=== PATIENT | female | born 1980 | race Caucasian/White ===

== ENCOUNTER 2021-10-28 09:15 | Outpatient (CLI) | payer BC, MEDICAID, SELFPAY ==
[2021-10-28 19:07] LABS: Basophils Percent Auto 0.5 % (0.2-1.2); Eosinophils Absolute Auto 0.3 K/mm3 (0-0.3); Eosinophils Percent Auto 3.2 % (0-4.4); Hematocrit 38.3 % (37.0-47.0); Hemoglobin 12.5 g/dL (12.0-15.0); Immature Granulocyte Absolute 0.02 K/mm3 (0.00-0.031); Immature Granulocyte Percent A 0.3 % (0-0.5); Lymphocytes Absolute Auto 2.09 K/mm3 (0.9-3.2); Lymphocytes Percent Auto 27.1 % (18.3-44.2); Mean Corpuscular HGB Conc 32.6 g/dl (32-36); Mean Corpuscular Hemoglobin 29.6 pg (26-34); Mean Corpuscular Volume 90.5 fl (80-100); Mean Platelet Volume 9.8 fl (7.4-10.4); Monocytes Absolute Auto 0.6 K/mm3 (0.1-0.6); Monocytes Percent Auto 7.6 % (2.6-8.5); Neutrophils Absolute Auto 4.7 K/mm3 (1.3-6.7); Neutrophils Percent Auto 61.3 % (45.5-73.1); Platelet Count Result 281 k/mm3 (150-375); Red Blood Count 4.23 M/mm3 (4.2-5.4); Red Cell Distribution Width 13.2 % (11.5-14.5); White Blood Count 7.7 K/mm3 (4.5-10.0)
[2021-10-28 20:42] LABS: Alanine Aminotransferase 16 U/L (6-35); Alkaline Phosphatase 59 U/L (38-126); Anion Gap 3 mmol/L (8-16); Aspartate Amino Transferase 29 U/L (14-36); Bilirubin,Total 0.4 mg/dL (0.2-1.3); Blood Urea Nitrogen 11 mg/dL (7-17); Calcium 9.5 mg/dL (8.4-10.2); Carbon Dioxide 30 mmol/L (22-30); Chloride 104 mmol/L (98-107); Cholesterol 244 mg/dL (0-200); Estimated Glomerular Filt Rate > 60; Glucose 96 mg/dL (65-110); HDL Direct 42 mg/dL; Potassium 4.2 mmol/L (3.4-5.0); Sodium 137 mmol/L (137-145); Triglycerides 82 mg/dL (<150)
[2021-10-28 20:53] LABS: LDL Cholesterol Direct 157 mg/dL
== END 2021-10-28 09:16 | disposition home or self-care (01) ==
LOC: ANHGOSHLAB 09:17
PROVIDERS: PCP Internal Medicine; Visit Provider Nurse Practitioner
DX: E03.9 Hypothyroidism, unspecified (principal); Z13.29 Encounter for screening for other suspected endocrine disorder; Z13.220 Encounter for screening for lipoid disorders
CPT/HCPCS: 36415; 80053; 80061; 84443; 85025

== ENCOUNTER 2021-11-13 16:08 | Emergency (ER) | payer BC, MEDICAID, SELFPAY ==
[2021-11-13 16:16] VITALS: BP 121/87; PULSE 80; RESP 20; TEMP 36.3; O2SAT 100
--- NOTE | 2021-11-13 16:25 | ED.DENTAL ---
HPI - Dental/Oral General Chief complaint: Dental/Oral Stated complaint: toothache Time Seen by Provider: 11/13/21 16:19 Source: patient Mode of arrival: ambulatory Limitations: no limitations History of Present Illness HPI Narrative: Patient presents today complaining of left upper dental pain x5 to 7 days. Reports that 2 weeks ago a piece broke off of one of her teeth. She currently rates her pain 8/10 and has been taking ibuprofen with some mild relief. She has not yet called her dentist, but states she will tomorrow. Denies shortness of breath, fever, difficulty swallowing. Related Data Allergies Allergy/AdvReac Type Severity Reaction Status Date / Time sulfanilamide Allergy Unknown Vomiting Verified 10/28/21 08:35 terbinafine Allergy Unknown Vomiting Verified 10/28/21 08:36 Sulfa (Sulfonamide AdvReac Severe VOMITING Verified 10/28/21 08:35 Antibiotics) Review of Systems Review of Systems: CONSTITUTIONAL: Denies body aches, fever, chills, or sweats. EYES: Denies visual changes, redness, or discharge. ENT: Denies rhinorrhea, congestion, sore throat, or otalgia.+ Dental pain CARDIOVASCULAR: Denies chest pain, palpitations, or edema. RESPIRATORY: Denies cough or dyspnea. GASTROINTESTINAL: Denies abdominal pain, nausea, vomiting, or diarrhea. GENITOURINARY: Denies dysuria or hematuria. SKIN: Denies rash, itching, or wounds. MUSCULOSKELETAL: Denies back pain, joint pain, or myalgia. NEUROLOGIC: Denies headache, numbness, tingling, or weakness. PSYCH: Denies depression or anxiety. [facility] Past Medical History Medical History Breast cancer Carpal tunnel syndrome Endometriosis Hypothyroid Migraines Severe depression Surgical History Surgical History History of breast surgery (~09/2021) right breast duct removal History of lumpectomy of left breast (~09/2021) Family History Family History Father Family history of diabetes mellitus in first degree relative Family history of pancreatic cancer Depression Anxiety Mother Family history of malignant neoplasm of thyroid Thyroid disorder Sibling Family history of malignant neoplasm of thyroid Thyroid disorder Grandparent Heart problem Other Diabetes mellitus Family history of malignant neoplasm Hypertension Social History Social History Smoking status: Former smoker Alcohol intake: never Other substance usage details: smokes marijuana Comments At time of signature, I have reviewed and agree with nursing past medical, surgical, social and family history unless otherwise noted. Please see nursing chart for further information. There is no relevant family history pertinent to the presenting complaint Exam Narrative: GENERAL: Well-appearing, well-nourished, and in no acute distress. HEAD: Normocephalic, atraumatic. EYES: EOMI. No redness or drainage. Conjunctivae normal. ENT: Mucous membranes pink and moist. Throat normal. Uvula midline. Fracture to the lateral half of tooth #14. It is also black in color. Patient has a few teeth that are broken, but most have good dentition. No obvious periapical abscess. NECK: Normal AROM. Supple. No lymphadenopathy. CHEST: No respiratory distress. EXTREMITIES: Normal range of motion. No edema. SKIN: Warm, dry, no rash. Capillary refill normal. Normal skin turgor. NEURO: No focal deficits. Alert and oriented x3. Gait steady. PSYCH: Normal affect. No signs of depression or anxiety. Course Course Level of Care: Express Care Visit Vital Signs Vital signs: Vital Signs Temperature 97.3 F L 11/13/21 16:16 Pulse Rate 80 11/13/21 16:16 Respiratory Rate 20 11/13/21 16:16 Blood Pressure 121/87 11/13/21 16:16 Pulse Oximetry 100 11/13/21 16:1
== END 2021-11-13 16:42 | disposition home or self-care (01) ==
PROVIDERS: Emergency Provider Nurse Practitioner; PCP Internal Medicine
DX: S02.5XXA Fracture of tooth (traumatic), initial encounter for closed fracture (principal); X58.XXXA Exposure to other specified factors, initial encounter; E03.9 Hypothyroidism, unspecified; N80.9 Endometriosis, unspecified; Z85.3 Personal history of malignant neoplasm of breast; Z87.891 Personal history of nicotine dependence
CPT/HCPCS: 99213; G0463

== ENCOUNTER 2021-11-26 17:19 | Emergency (ER) | payer BC, MEDICAID, SELFPAY ==
--- NOTE | 2021-11-26 17:24 | ED.DENTAL ---
HPI - Dental/Oral General Chief complaint: Dental/Oral Stated complaint: toothache Time Seen by Provider: 11/26/21 17:37 Source: patient Mode of arrival: ambulatory Limitations: no limitations History of Present Illness HPI Narrative: 41-year-old female presents with concern for left upper dental pain. Reports she was seen 2 weeks ago and given amoxicillin which did not improve the pain so she stopped taking it. She reports she had broken a tooth prior to that visit. She reports the pain shoots up her jaw. She denies any jaw swelling, fever, difficulty swallowing, foul taste in her mouth. She reports she has had trouble getting time to go to the dentist. MD Complaint: tooth pain Related Data Allergies Allergy/AdvReac Type Severity Reaction Status Date / Time sulfanilamide Allergy Unknown Vomiting Verified 10/28/21 08:35 terbinafine Allergy Unknown Vomiting Verified 10/28/21 08:36 Sulfa (Sulfonamide AdvReac Severe VOMITING Verified 10/28/21 08:35 Antibiotics) Review of Systems Review of Systems: CONSTITUTIONAL: Denies malaise, chills, sweats, or fever. EYES: Denies visual changes ENT: Denies rhinorrhea, congestion, sinus pain, otalgia or sore throat. Reports left upper dental pain CARDIOVASCULAR: Denies chest pain, palpitations RESPIRATORY: Denies cough or dyspnea. SKIN: Denies rash or itching. MUSCULOSKELETAL: Denies myalgia. NEUROLOGIC: Denies numbness, weakness, or headache. All systems reviewed & are unremarkable except as noted in HPI and below PMFSH Past Medical History Medical History Breast cancer Carpal tunnel syndrome Endometriosis Hypothyroid Migraines Severe depression Surgical History Surgical History History of breast surgery (~09/2021) right breast duct removal History of lumpectomy of left breast (~09/2021) Family History Family History Father Family history of diabetes mellitus in first degree relative Family history of pancreatic cancer Depression Anxiety Mother Family history of malignant neoplasm of thyroid Thyroid disorder Sibling Family history of malignant neoplasm of thyroid Thyroid disorder Grandparent Heart problem Other Diabetes mellitus Family history of malignant neoplasm Hypertension Social History Social History Smoking status: Former smoker Alcohol intake: never Other substance usage details: smokes marijuana Comments At time of signature, agree with nursing past medical, surgical, social and family history. There is no relevant family history pertinent to the presenting complaint Exam Narrative: GENERAL: Well-appearing, well-nourished, and in no acute distress. HEAD: Normocephalic, atraumatic. EYES: PERRLA, sclera clear ENT: Nares clear, turbinates pink, no rhinorrhea or epistaxis. Mucous membranes moist. TM pearly shrestha with sharp light reflex bilaterally; no tragal tenderness. Oropharynx without erythema or lesions. Tonsils not enlarged and without exudate. Caries noted, tooth #14 broken with decay. No periapical abscess, fluctuation or other abscess noted NECK: Supple. No lymphadenopathy. CHEST: No respiratory distress. Speaks in full sentences. HEART: Regular rate and rhythm. SKIN: Warm, dry, no visible rash. NEURO: Alert and oriented x3. PSYCH: Normal mood and affect Course Course Emergency Course: Patient is aware of diagnosis, understands and agrees to treatment plan. Anticipatory guidance given. Patient agrees to follow-up as directed and is aware of reasons to seek care at the emergency department. Portions of this record may have been created with voice recognition software Level of Care: Express Care Visit Vital Signs Vital signs: Reviewed. MDM - Dental/Oral MDM Narrative
[2021-11-26 17:28] VITALS: BP 129/70; PULSE 79; RESP 16; TEMP 36.5; O2SAT 100
== END 2021-11-26 17:48 | disposition home or self-care (01) ==
PROVIDERS: Emergency Provider Nurse Practitioner; PCP Internal Medicine
DX: K08.89 Other specified disorders of teeth and supporting structures (principal); N80.9 Endometriosis, unspecified; E03.9 Hypothyroidism, unspecified; Z85.3 Personal history of malignant neoplasm of breast
CPT/HCPCS: 99213; G0463

== ENCOUNTER 2022-08-11 16:28 | Emergency (ER) | payer BC, MEDICAID, SELFPAY ==
--- NOTE | 2022-08-11 16:40 | ED.HA ---
HPI - Headache General Chief Complaint: Headache Stated Complaint: migraine Time Seen by Provider: 08/11/22 16:40 Source: patient Mode of arrival: ambulatory Limitations: no limitations History of Present Illness HPI Narrative: Ms. Alegre is a 42-year-old female patient presenting to clinic today with complaints of a migraine headache that began this morning. She is experiencing nausea, vomiting, photosensitivity, and pain 10/10 currently. History of migraine headaches. Has taken 2 Excedrin migraines today without relief. Related Data Allergies Allergy/AdvReac Type Severity Reaction Status Date / Time sulfanilamide Allergy Unknown Vomiting Verified 08/11/22 16:38 terbinafine Allergy Unknown Vomiting Verified 08/11/22 16:38 Sulfa (Sulfonamide AdvReac Severe VOMITING Verified 08/11/22 16:38 Antibiotics) Review of Systems Review of Systems: Pertinent positives per HPI. Patient denies any fever, chills, rash, visual changes, dizziness, cough, runny nose, sore throat, shortness of breath, chest pain, palpitations, diarrhea, constipation, abdominal pain, or any urinary issues. [facility] Past Medical History Medical History Breast cancer Carpal tunnel syndrome Endometriosis Hypothyroid Migraines Severe depression Surgical History Surgical History History of breast surgery (~09/2021) right breast duct removal History of lumpectomy of left breast (~09/2021) History of tubal ligation Family History Family History Father Family history of diabetes mellitus in first degree relative Family history of pancreatic cancer Depression Anxiety Mother Family history of malignant neoplasm of thyroid Thyroid disorder Sibling Family history of malignant neoplasm of thyroid Thyroid disorder Grandparent Heart problem Other Diabetes mellitus Family history of malignant neoplasm Hypertension Social History Social History Smoking status: Former smoker Alcohol intake: never Substance use: current Substance use type: marijuana Other substance usage details: smokes marijuana Lack of Transportation: No Lack of Food: Often True Current Housing: I Have Housing Concerned About Future Housing: No Difficulty Paying Gas/Electric Bills: YES Difficulty Paying for Meds: No Currently Unemployed: YES Education: Bachelor's Degree Difficulty w/ Childcare or Family Care: No Living arrangements: with family Occupation/Education: occupation Gender identity (if verbalized by the patient): Female Sexual Orientation (if Verbalized by the Patient): Straight or Heterosexual Comments At the time of my signature, I reviewed and agree with the nursing past medical, surgical, social, and family history. There is no relevant family history pertinent to the patient complaint. Exam Narrative: General: Well-developed, obese, in apparent discomfort due to pain Head: Normocephalic, atraumatic Eyes: Pupils equally round and reactive to light bilaterally, EOM intact, sclera and conjunctive clear, no discharge, lids normal Ears: TMs intact and clear, ear canals clear, no drainage, grossly hearing normal. Nose: Nares patent, no discharge, no inflammation, no sinus tenderness. Mouth: Oropharynx without lesions or masses, good dentition, MMM. Neck: Supple, trachea midline, no enlargement of anterior or posterior cervical nodes, no thyroid masses or goiter palpable. Cardio: Regular rate and rhythm, s1 and s2 normal, no murmur appreciated. Resp: Clear to auscultation bilaterally anteriorly and posteriorly, no rhonchi, rales, wheezing or rubs Course Course Emergency Course: Portions of this record may have been created with voice recognition software. Level of Car
[2022-08-11] MEDS: KETOROLAC (*BKC) 60 MG/2 ML VIAL IM (16:48)
[2022-08-11] MEDS: ONDANSETRON HCL ODT 4 MG TABLET SUBLINGUAL (16:48)
[2022-08-11 17:06] VITALS: BP 132/89; PULSE 72; RESP 16; TEMP 36.2; O2SAT 100
== END 2022-08-11 17:10 | disposition home or self-care (01) ==
PROVIDERS: Emergency Provider Nurse Practitioner Family; PCP Internal Medicine
DX: G43.019 Migraine without aura, intractable, without status migrainosus (principal); E03.9 Hypothyroidism, unspecified; Z87.891 Personal history of nicotine dependence; Z85.3 Personal history of malignant neoplasm of breast
CPT/HCPCS: 96372; 99213; A9270; G0463; J1885

== ENCOUNTER 2023-05-07 17:50 | Emergency (ER) | payer BC, MEDICAID, SELFPAY ==
--- NOTE | 2023-05-07 17:57 | ED.GENADULT ---
HPI - General Adult General Chief complaint: Upper Respiratory Infection Stated complaint: Flu symptoms Source: patient, RN notes reviewed and old records reviewed Mode of arrival: ambulatory Limitations: no limitations History of Present Illness HPI narrative: 42-year-old female presents to [facility] with complaints of cough, congestion, fever, sore throat this started Sunday night. Patient taking [id number] medications without relief. Patient denies chest pain, shortness of breath, weakness, dizziness. Related Data Allergies Allergy/AdvReac Type Severity Reaction Status Date / Time sulfanilamide Allergy Unknown Vomiting Verified 05/07/23 18:06 terbinafine Allergy Unknown Vomiting Verified 05/07/23 18:06 Sulfa (Sulfonamide AdvReac Severe VOMITING Verified 05/07/23 18:06 Antibiotics) Review of Systems Constitutional: Constitutional: Reports no additional constitutional complaints, Reports body ache(s), Denies chills, Reports fatigue, Reports fever(s) and Denies headache(s) Eyes: Eyes: Reports no additional eye complaints and Denies blurry vision ENT: Reports system reviewed and no additional complaints, except as documented, Denies vertigo, Denies dizziness, Denies ear discharge, Denies otalgia, Denies facial pain, Denies headache(s), Reports nasal congestion, Reports nasal discharge, Denies sinus pain, Denies sinus pressure and Reports sore throat Cardiovascular: Cardiovascular: Reports no additional cardiovascular complaints, Denies chest pain, Denies chest pain at rest, Denies rapid heart rate and Denies dyspnea Respiratory: Respiratory: Reports no additional respiratory complaints, Reports chest congestion, Reports cough, Denies pain on inspiration, Denies pain with cough and Denies dyspnea Gastrointestinal: Gastrointestinal: Denies abdominal pain, Denies diarrhea, Denies nausea and Denies vomiting Integumentary/Breasts: Skin/Breast: Denies rash Neurologic: Reports system reviewed and no additional complaints, except as documented, Denies vertigo, Denies dizziness and Denies headache(s) Endocrine: Endocrine: Denies fatigue [facility] Past Medical History Medical History Breast cancer Carpal tunnel syndrome Endometriosis Hypothyroid Migraines Severe depression Surgical History Surgical History History of breast surgery (~09/2021) right breast duct removal History of lumpectomy of left breast (~09/2021) History of tubal ligation Family History Family History Father Family history of diabetes mellitus in first degree relative Family history of pancreatic cancer Depression Anxiety Mother Family history of malignant neoplasm of thyroid Thyroid disorder Sibling Family history of malignant neoplasm of thyroid Thyroid disorder Grandparent Heart problem Other Diabetes mellitus Family history of malignant neoplasm Hypertension Social History Social History Smoking status: Former smoker Alcohol intake: never Substance use: current Substance use type: marijuana Other substance usage details: smokes marijuana Lack of Transportation: No Lack of Food: Sometimes True Current Housing: I Have Housing Concerned About Future Housing: No Difficulty Paying Gas/Electric Bills: YES Difficulty Paying for Meds: No Currently Unemployed: No Education: Bachelor's Degree Difficulty w/ Childcare or Family Care: No Living arrangements: with family Occupation/Education: occupation Gender identity (if verbalized by the patient): Female Sexual Orientation (if Verbalized by the Patient): Straight or Heterosexual Comments At the time of my signature, I reviewed and agree with the nursing past medical, surgical, social, and family history. There is no
[2023-05-07 18:00] VITALS: BP 138/80; PULSE 81; RESP 16; TEMP 36.1; O2SAT 100
[2023-05-07 18:07] VITALS: BP 138/80; PULSE 81; RESP 16; TEMP 36.1; O2SAT 100
== END 2023-05-07 18:21 | disposition home or self-care (01) ==
PROVIDERS: Emergency Provider Registered Nurse; PCP Internal Medicine
DX: B34.9 Viral infection, unspecified (principal); Z87.891 Personal history of nicotine dependence; F12.90 Cannabis use, unspecified, uncomplicated; N80.9 Endometriosis, unspecified; E03.9 Hypothyroidism, unspecified; F32.A Depression, unspecified; Z85.3 Personal history of malignant neoplasm of breast; Z90.12 Acquired absence of left breast and nipple
CPT/HCPCS: 87426; 87804; 99213; G0463

== ENCOUNTER 2023-08-16 07:53 | Outpatient (CLI) | payer BC, MEDICAID, SELFPAY ==
[2023-08-16 08:23] LABS: Basophils Percent Auto 0.5 % (0.2-1.2); Eosinophils Absolute Auto 0.3 K/mm3 (0-0.3); Eosinophils Percent Auto 3.2 % (0-4.4); Hematocrit 39.1 % (37.0-47.0); Hemoglobin 12.8 g/dL (12.0-15.0); Immature Granulocyte Absolute 0.03 K/mm3 (0.00-0.031); Immature Granulocyte Percent A 0.4 % (0-0.5); Lymphocytes Absolute Auto 2.52 K/mm3 (0.9-3.2); Lymphocytes Percent Auto 31.1 % (18.3-44.2); Mean Corpuscular HGB Conc 32.7 g/dl (32-36); Mean Corpuscular Hemoglobin 29.2 pg (26-34); Mean Corpuscular Volume 89.3 fl (80-100); Mean Platelet Volume 9.4 fl (7.4-10.4); Monocytes Absolute Auto 0.6 K/mm3 (0.1-0.6); Monocytes Percent Auto 7.9 % (2.6-8.5); Neutrophils Absolute Auto 4.6 K/mm3 (1.3-6.7); Neutrophils Percent Auto 56.9 % (45.5-73.1); Platelet Count Result 275 k/mm3 (150-375); Red Blood Count 4.38 M/mm3 (4.2-5.4); Red Cell Distribution Width 13.5 % (11.5-14.5); White Blood Count 8.1 K/mm3 (4.5-10.0)
== END 2023-08-16 07:54 | disposition home or self-care (01) ==
LOC: ANHSURGERY 08:03
PROVIDERS: PCP Internal Medicine; Visit Provider Obstetrics & Gynecology
DX: Z01.818 Encounter for other preprocedural examination (principal); R58 Hemorrhage, not elsewhere classified
CPT/HCPCS: 36415; 85025; 86850; 86900; 86901

== ENCOUNTER 2023-08-17 00:34 | Day surgery (SDC) | payer BC, OTHER, MEDICAID, SELFPAY ==
--- NOTE | 2023-08-14 07:02 | PM.IMHP ---
H&P: HPI History of Present Illness Date/Time: 08/14/23 07:02 Chief Complaint: Excessive bleeding pelvic pain/dyspareunia/stress urinary incontinence Narrative: 43-year-old multiparous admitted for robotic hysterectomy bilateral salpingectomy tension-free vaginal tape secondary to irregular bleeding pelvic pain dyspareunia and stress urinary incontinence. She loses urine with coughing laughing sneezing. Risks and benefits of this procedure were reviewed including exclusive of , aspiration pneumonia bleeding, transfusion, perforation injury to bowel, bladder, ureters, or other internal organs with need for open laparotomy. The risk of mesh erosion etc. was reviewed. She received the ACOG handout entitled hysterectomy as well as Advil she had out id the TVT handout. She had all questions answered. She asked to proceed PMFSH Past Medical History Medical History Breast cancer Carpal tunnel syndrome Endometriosis Hypothyroid Migraines Severe depression Surgical History Surgical History History of breast surgery (~09/2021) right breast duct removal History of lumpectomy of left breast (~09/2021) History of tubal ligation Family History Family History Father Family history of diabetes mellitus in first degree relative Family history of pancreatic cancer Depression Anxiety Mother Family history of malignant neoplasm of thyroid Thyroid disorder Sibling Family history of malignant neoplasm of thyroid Thyroid disorder Grandparent Heart problem Other Diabetes mellitus Family history of malignant neoplasm Hypertension Social History Social History Smoking status: Former smoker Alcohol intake: never Substance use: current Substance use type: marijuana Other substance usage details: smokes marijuana Lack of Transportation: No Lack of Food: Sometimes True Current Housing: I Have Housing Concerned About Future Housing: No Difficulty Paying Gas/Electric Bills: YES Difficulty Paying for Meds: No Currently Unemployed: No Education: Bachelor's Degree Difficulty w/ Childcare or Family Care: No Living arrangements: with family Occupation/Education: occupation Gender identity (if verbalized by the patient): Female Sexual Orientation (if Verbalized by the Patient): Straight or Heterosexual Meds Home Medications and Allergies Home Medications Medication Instructions Recorded Confirmed Type bupropion HCl 150 mg 24 hr tablet, 150 mg PO DAILY #90 tabs 04/26/23 07/18/23 Rx extended release levothyroxine 112 mcg tablet 112 mcg PO DAILY #90 tabs 04/26/23 07/18/23 Rx citalopram 40 mg tablet 40 mg PO DAILY #90 tabs 05/15/23 07/18/23 Rx erenumab-aooe 70 mg/mL See Rx Instructions .Route 06/11/23 07/18/23 Rx subcutaneous auto-injector .COMPLEX #1 mL (Aimovig Autoinjector) norethindrone (contraceptive) 0.35 See Rx Instructions .Route 07/02/23 07/18/23 Rx mg tablet .COMPLEX #84 tabs Allergies Allergy/AdvReac Type Severity Reaction Status Date / Time sulfanilamide Allergy Unknown Vomiting Verified 07/18/23 08:10 terbinafine Allergy Unknown Vomiting Verified 07/18/23 08:10 Sulfa (Sulfonamide AdvReac Severe VOMITING Verified 07/18/23 08:10 Antibiotics) Exam Const: General: cooperative, healthy appearing, comfortable and overweight Orientation/consciousness: oriented to person, oriented to place and oriented to time HENMT: Head: normal to inspection Resp: Effort & Inspection: normal respiratory effort Cardio: Rate: regular rate Rhythm: regular rhythm Heart sounds: S1 normal heart sound present and S2 normal heart sound present GI: Inspection: normal to inspection : External Female Exam: normal external appearance and o
[2023-08-14 14:06] VITALS: BMI 41.6
--- NOTE | 2023-08-14 14:17 | PC.NURSE ---
Report to the Outpatient Waiting Room, entrance under the green pavilion located off [facility], at time _1130_ on date _[id number]_. Planned Procedure Time: _130pm_. Time changes happen often and if your time is changed the preop area will call you the afternoon before. - You and your visitor will be asked to self-screen and do not enter if you have any COVID symptoms. - A mask is optional within the hospital at this time. Patients may have clear liquids (water, carbonated beverages, clear teas, apple juice) until 3 hours prior to surgery with a maximum of 20 ounces. - No food from midnight until time of surgery Take the following medications with a SIP of water the morning of surgery: ___None DO NOT STOP ANY OF YOUR OTHER PRESCRIPTION MEDICATIONS PRIOR TO SURGERY ?EXCEPT THE FOLLOWING Medications to discontinue per physician ____None Date to take last dose Please no make-up, nail guatemalan, hairspray, perfume, deodorant, or body powder the day of surgery. No jewelry (including any body piercings) or valuables the day of surgery, leave them at home. Please take a shower or bath the night before, or the morning of, surgery with an antibacterial soap. Wear comfortable, loose fitting clothing. - Jewelry must be removed prior to entering the operating room. Rings and piercings that are not removed may be cut off. - The hospital will not accept responsibility for valuables. - Please leave all valuables, including medications, at home the day of surgery. If you are going home after surgery, a licensed trailer driver must drive you home. - NO public transportation without another adult if you receive anesthesia. - We recommend that an adult stay with you for 24 hours following discharge. - We also recommend that you do not drive, make important decision, drink alcoholic beverages, or take any drugs that were not prescribed by your health care provider for at least 24 hours after your discharge time. Follow any additional instructions given to you from your surgeon. If you or anyone in your household have experienced Covid symptoms in the past week, please notify your surgeon or the nurse liaison at the phone number below for possible testing. Telephone instructions given to __Mary___and asked if any additional questions and then verbalized understanding. Patient advised to call surgeon office or pre surgery nurse liaison [phone] if any additional questions.
[2023-08-17] VITALS (9 sets, daily range): BP systolic 113–135; BP diastolic 60–88; PULSE 78–99; RESP 11–18; TEMP 36.5–36.9; O2SAT 95–100; BMI 41.3
--- NOTE | 2023-08-17 05:18 | WPDHPUPDATE1 ---
History and Physical Update Update Date/Time: 08/17/23 05:18 History and Physical has been reviewed, including an updated exam of the patient. There are NO changes in the patient's condition. Risks, benefits, and alternatives have been discussed and questions answered. Patient agrees to proceed with procedure.
[2023-08-17] MEDS: LACTATED RINGERS 1,000 ML 30 ML IV CONT (12:15)
[2023-08-17] MEDS: ACETAMINOPHEN 500 MG TABLET 1000 MG PO (12:20)
[2023-08-17] MEDS: KETOROLAC 15 MG/ML VIAL (*BKC) IV PUSH (12:20)
--- NOTE | 2023-08-17 12:23 | WPDANESEPPF ---
Anes - Initial Pre Proc Eval Procedure: Operation Date: 08/17/23 13:30 Proposed Procedures p Robotic Assisted Total Vaginal Hysterectomy, Bilateral Salpingectomy - Marvin Hill MD s Trans Vaginal Taping - Marvin Hill MD Date/Time: 08/17/23 12:23 Surgeon: Marvin Hill MD Pre Op Diagnosis: irreg bleeding, pelvic pain, dyspurenia Patient Data Age: 43 Gender: F Height: 1.55 m Weight: 100 kg Allergies Allergy/AdvReac Type Severity Reaction Status Date / Time Sulfa (Sulfonamide AdvReac Severe VOMITING Verified 08/14/23 14:05 Antibiotics) sulfanilamide AdvReac Mild Vomiting Verified 08/14/23 14:05 terbinafine AdvReac Mild Vomiting Verified 08/14/23 14:05 Home Medications Medication Instructions Recorded Confirmed Type norethindrone (contraceptive) 0.35 See Rx Instructions .Route 07/02/23 08/14/23 Rx mg tablet .COMPLEX #84 tabs bupropion HCl 150 mg 24 hr tablet, 150 mg PO HS 08/14/23 08/14/23 History extended release citalopram 40 mg tablet 40 mg PO HS 08/14/23 08/14/23 History levothyroxine 112 mcg tablet 112 mcg PO HS 08/14/23 08/14/23 History erenumab-aooe 70 mg/mL See Rx Instructions .Route 08/17/23 Rx subcutaneous auto-injector .COMPLEX #1 mL (Aimovig Autoinjector) hydrocodone 5 mg-acetaminophen 325 1 tablet PO Q4H PRN pain #30 tabs 08/17/23 Rx mg tablet Patient hx anesthesia problems: post op nausea/vomiting Family hx anesthesia problems: post op nausea/vomiting Results Review: All pre-operative results and documents have been reviewed as part of the pre-operative evaluation. [facility] Past Medical History Medical History Breast cancer Carpal tunnel syndrome Endometriosis Hypothyroid Migraines Severe depression Surgical History Surgical History History of breast surgery (~09/2021) right breast duct removal History of lumpectomy of left breast (~09/2021) History of tubal ligation Family History Family History Father Family history of diabetes mellitus in first degree relative Family history of pancreatic cancer Depression Anxiety Mother Family history of malignant neoplasm of thyroid Thyroid disorder Sibling Family history of malignant neoplasm of thyroid Thyroid disorder Grandparent Heart problem Other Diabetes mellitus Family history of malignant neoplasm Hypertension Social History Social History Smoking packs per day: 1 Smoking cigarettes per day: 20.0 Years smoked: 5 Smoking pack-years: 5.00 Smoking status: Never smoker Tobacco type: cigarettes and e-cigarettes/vaping Smoking end date: 08/13/18 Alcohol intake: never Substance use: current Substance use type: marijuana Other substance usage details: smokes marijuana Lack of Transportation: No Lack of Food: Sometimes True Current Housing: I Have Housing Concerned About Future Housing: No Difficulty Paying Gas/Electric Bills: YES Difficulty Paying for Meds: No Currently Unemployed: No Education: Bachelor's Degree Difficulty w/ Childcare or Family Care: No Living arrangements: with family Occupation/Education: occupation Gender identity (if verbalized by the patient): Female Sexual Orientation (if Verbalized by the Patient): Straight or Heterosexual Spiritual care concerns: No Anes - Eval Final PreProcedure Day of Procedure 08/17/23 12:23 Patient weight: morbidly obese Heart: regular rate and rhythm Lungs: clear to auscultation Airway: Mallampati scale class II Neurological: alert and oriented Last oral intake: >/= 8 hours ASA classification: III Emergent: no Anesthetic plan: proceed Anesthesia type and monitoring: general ETT and standard monitoring Results Review: All pre-op
[2023-08-17] MEDS: SCOPOLAMINE 1 MG PATCH 1 PATCH TRANSDERM (12:42)
--- NOTE | 2023-08-17 14:58 | W.PM.PROC2 ---
Procedure Note - Detailed Date of Procedure 08/17/23 Pre-op Diagnosis irreg bleeding, pelvic pain, dyspurenia/ stress urine incontinence Post-op Diagnosis Same Procedure Performed robotic total hysterectomy salpingectomy with cystoscopy tension-free vaginal tape Surgeon Marvin Hill MD Anesthesia General Indications 43-year-old female with excessive heavy bleeding enlarged uterus and stress urinary incontinence Findings uterus. Tubes status post tubal ligation. Normal-appearing ovaries Description of Procedure patient was prepped draped in normal sterile fashion placed in the dorsal lithotomy position. Under excellent general trach anesthesia weighted speculum placed in posterior fornix vagina. Anterior lip of the cervix grasped with a single-tooth tenaculum. Uterus sounded to 11cm. Serial dilatation with fragmented dilators performed followed by passage of the 10. SARAH and the 3. Cold cup. Next the 18 Belgian catheter was placed in the bladder draining clear. Weighted speculum was and gloves were changed. A supraumbilical incision made the Veress needle passed in the abdomen. Abdomen filled with CO2 gas [id number]. The 8mm trocar advanced in the abdomen. Downside visualized no injury seen. Patient placed in 18? Trendelenburg a right and left lateral quadrant incisions made 8mm trocars advanced under visualization assuring no injury. Right upper quadrant incision made the 8mm trocar advanced under direct visualization assuring no injury. The robot was docked. Attention was turned to the mortgage loan counselor. The left round ligament grasped, burned, cut. Anterior bladder flap was formed by sharply dissecting peritoneum and the bringing this to the opposite round ligament which was clamped, burned, cut. Next the the left fallopian tube was skeletonized and removed from the ovarian complex. The wrist was left attached to the uterine origin. This was performed with the right fallopian tube on the opposite side. The utero-ovarian ligament was then skeletonized on the left clamping burning cutting ring this to the round previous cut round ligament. In similar fashion on the right conserving the right ovary, the utero-ovarian ligament was clamped, burned, cut brought to the level of previously cut ligament the cardinal broad ligaments on the left were skeletonized clamping burning cutting brought down the lateral edge of the uterus until the uterine vessels could be seen on the left. These were individually clamped, burned, cut. In similar fashion on the right the cardinal broad ligaments were clamped, burned, cut hugging the cervix and uterus until the uterine vessels could be seen on the right these were individually clamped, burned, cut. Colpotomy incision was made the cervix uterus and tubes removed through the vagina. The vagina was then closed with continuous running 0V lock from lateral edge to lateral edge and back to midline. Irrigation undertaken to clear and hemostasis was assured the robot was undocked the gas removed from the abdomen. The trocars removed the incisions closed with 4 Monocryl glue. Attention was turned to the tension-free vaginal tape portion the 18 Belgian catheter had been previously placed at the mid urethral portion of small mucosal incision was made the left lateral and right lateral lobe bladder spaces were entered. The urethral guide was placed in the bladder and the retracted laterally the left lateral bladder space was entered at a 45 degree angle behind the pubic bone upto35? and through the fascia in like fashion after retracting the urethra to the opposite direction of the left retropubic bladder space entered by the 45 degree angle past the pubic bone up 35? through the fashion skin. The catheter was removed and the 70degree cystoscope inserted each ureteral orifice was noted to be flowing and no injury to the bladder was seen the cystoscope was removed the 16 Belgian catheter was replaced and this w
--- NOTE | 2023-08-17 15:06 | P.DS_ITS ---
DS: Admitting Diagnosis Discharge Date 08/18/2023 Admitting Diagnosis stress urinary incontinence excessive bleeding DS: Discharge Diagnosis Discharge Diagnosis (1) FRIEDA (stress urinary incontinence, female): Code(s): N39.3 - Stress incontinence (female) (male) Status: Acute (2) Excessive bleeding: Code(s): R58 - Hemorrhage, not elsewhere classified Status: Acute DS: Summary Hospital Course Reason for hospitalization: robotic total vaginal hysterectomy with bilateral salpingectomy and tension- free vaginal tape Hospital Course: patient's hospital course unremarkable. She remained afebrile. She was up, voiding without difficulty, eating regular diet ambulating generally without complaints. Time Spent with Patient Time attestation: Total time spent providing and/or coordinating discharge services: Exam Const: General: cooperative, healthy appearing and comfortable Orientation/consciousness: oriented to person, oriented to place and oriented to time HENMT: Head: normal to inspection Resp: Effort & Inspection: normal respiratory effort Cardio: Rate: regular rate Rhythm: regular rhythm Heart sounds: S1 normal heart sound present and S2 normal heart sound present GI: Inspection: normal to inspection and incision ( wounds are clean dry and intact) DS: Data Data Completed and Pending Pending studies at discharge: Pending at discharge 08/17/23 14:35 Surgical [PTH] Routine Discharge Plan Discharge Patient Disposition: Home, Self-Care Discharge Instructions: Remove the Scopolamine patch that was placed behind your ear in 72 hours or less. Wash your hands after touching. Stand Alone Forms: General Discharge Instructions Follow-up/Referrals: Marvin Jose MD [Physician] - Discharge Medications: New hydrocodone-acetaminophen 5-325 mg tablet 1 tablet PO Q4H PRN (Reason: pain) Qty: 30 0RF No Action citalopram 40 mg tablet 40 mg PO HS levothyroxine 112 mcg tablet 112 mcg PO HS bupropion HCl 150 mg tablet extended release 24 hr 150 mg PO HS norethindrone (contraceptive) 0.35 mg tablet See Rx Instructions .ROUTE .COMPLEX Qty: 84 0RF Dose Instruction: TAKE 1 TABLET BY MOUTH DAILY Rx Instructions: TAKE 1 TABLET BY MOUTH DAILY Aimovig Autoinjector 70 mg/mL auto-injector See Rx Instructions .ROUTE .COMPLEX Qty: 1 1RF Dose Instruction: INJECT 70 MG SUBCUTANEOUSLY MONTHLY Rx Instructions: INJECT 70 MG SUBCUTANEOUSLY MONTHLY
--- NOTE | 2023-08-17 16:20 | ADMGEN ---
This patient, Ruby Alegre, was admitted to OB 2nd Floor Room 277-00. Patient/family oriented to hospital policies and general routines including ID bracelet, bed and alarms, visiting hours, pain management, procedures, bathroom and other care routines, personal items, smoking policy, room service/diet, and visiting hours. Information on how to activate the Rapid Response Team has been discussed. Patient/Family are encouraged to report perceived risks to care and to ask questions if they do not understand what they are told or what they should do.
[2023-08-17] MEDS: DEXTROSE 5%/LACTATED RINGERS 1,000 ML 125 ML IV CONT (17:22)
[2023-08-17] MEDS: SIMETHICONE 80 MG TAB.CHEW PO (17:29)
[2023-08-17] MEDS: KETOROLAC 30 MG/ML VIAL (*BKC) IV PUSH (17:30)
[2023-08-17] MEDS: DOCUSATE SODIUM 100 MG CAPSULE PO (17:30)
[2023-08-17] MEDS: HYDROcodone/acetaminophen (*CRX) 10-325 MG TABLET 1 TAB PO (21:57)
[2023-08-17] MEDS: IBUPROFEN 600 MG TABLET PO (23:09)
[2023-08-18] MEDS: HYDROcodone/acetaminophen (*CRX) 10-325 MG TABLET 1 TAB PO ×2 (02:27→08:59)
[2023-08-18 05:05] LABS: Basophils Percent Auto 0.2 % (0.2-1.2); Hematocrit 37.7 % (37.0-47.0); Hemoglobin 12.3 g/dL (12.0-15.0); Immature Granulocyte Absolute 0.06 K/mm3 (0.00-0.031); Immature Granulocyte Percent A 0.5 % (0-0.5); Lymphocytes Absolute Auto 1.18 K/mm3 (0.9-3.2); Mean Corpuscular HGB Conc 32.6 g/dl (32-36); Mean Corpuscular Hemoglobin 29.1 pg (26-34); Mean Corpuscular Volume 89.1 fl (80-100); Monocytes Percent Auto 7.3 % (2.6-8.5); Neutrophils Absolute Auto 10.9 K/mm3 (1.3-6.7); Platelet Count Result 301 k/mm3 (150-375); Red Blood Count 4.23 M/mm3 (4.2-5.4); Red Cell Distribution Width 13.4 % (11.5-14.5); White Blood Count 13.1 K/mm3 (4.5-10.0)
--- NOTE | 2023-08-18 05:52 | PM.GYNPNOP ---
AIRCONDITIONING ENGINEER - A/P Postoperative Procedures: Procedures Operation Date: 08/17/23 13:30 Actual Procedure Side Surgeon p Robotic Assisted Total Vaginal Hysterectomy, Bilateral Salpingectomy Bilateral Marvin Hill MD s Trans Vaginal Taping Marvin Hill MD Postoperative day: 1 Postoperative status: doing well Postoperative plan: routine post-op care, see orders, ambulate, advance diet, voiding trials and discharge Time Spent With Patient Time: Total time spent is greater than 50% in coordination of care (as documented) at patient's floor/unit and/or counseling patient: Time with patient: less than 15 minutes AIRCONDITIONING ENGINEER- PN:Subj Post-Op Subjective Date/time seen: 08/18/23 05:52 Subjective: patient has no complaints, patient desires discharge and pain is well controlled Exam Const: General: cooperative, healthy appearing and comfortable Nutritional Appearance: average body habitus Orientation/consciousness: oriented to person, oriented to place and oriented to time HENMT: Head: normal to inspection Resp: Effort & Inspection: normal respiratory effort Cardio: Rate: regular rate Rhythm: regular rhythm Heart sounds: S1 normal heart sound present and S2 normal heart sound present GI: Inspection: normal to inspection and incision ( clean dry and intact) AIRCONDITIONING ENGINEER - PN: Obj Data Vital Signs Vital Signs: Vital Signs - 24 hr 08/17/23 11:50 08/17/23 15:05 08/17/23 15:20 Temperature 97.9 F 97.7 F Pulse Rate 78 99 94 Respiratory Rate 14 14 12 Blood Pressure 120/60 135/69 118/88 Pulse Oximetry 99 100 100 Oxygen Delivery Room Air Simple Face Mask Simple Face Mask Oxygen Flow Rate 8 8 08/17/23 15:35 08/17/23 15:50 08/17/23 16:05 Temperature Pulse Rate 89 91 83 Respiratory Rate 15 11 L 11 L Blood Pressure 121/64 115/68 116/66 Pulse Oximetry 97 96 95 Oxygen Delivery Room Air Room Air Room Air Oxygen Flow Rate 08/17/23 16:30 08/17/23 16:30 08/17/23 19:33 Temperature 98.2 F 98.4 F Pulse Rate 92 83 Respiratory Rate 12 18 Blood Pressure 114/81 113/77 Pulse Oximetry 97 Oxygen Delivery Room Air Oxygen Flow Rate 08/17/23 23:09 Temperature 98.1 F Pulse Rate Respiratory Rate Blood Pressure Pulse Oximetry Oxygen Delivery Oxygen Flow Rate Intake/Output Intake/Output: Intake & Output 08/15/23 08/16/23 08/17/23 08/18/23 23:59 23:59 23:59 23:59 Intake Total 100 850 Output Total 60 800 Balance 40 50 Meds/Results Medications: Active Medications Generic Name Dose Route Start Last Admin Trade Name Freq PRN Reason Stop Dose Admin Hydrocodone Bitart/Acetaminophen 1 tab 08/17/23 16:10 Hydrocodone/Acetaminophen (*Crx) 5-325 Mg Tablet PO Q3H PRN Pain Rated 5 or Less Hydrocodone Bitart/Acetaminophen 1 tab 08/17/23 16:10 08/18/23 02:27 Hydrocodone/Acetaminophen (*Crx) 10-325 Mg Tablet PO 1 tab Q3H PRN Administration Pain Rated 6 or Greater Docusate Sodium 100 mg 08/17/23 17:00 08/17/23 17:30 Docusate Sodium 100 Mg Capsule PO 100 mg BID VETO Administration Enoxaparin Sodium 40 mg 08/18/23 09:00 Enoxaparin 40 Mg/0.4 Ml Syringe SUB-Q DAILY VETO Dextrose/Lactated Ringer's 1,000 mls @ 125 mls/hr 08/17/23 16:10 08/17/23 17:22 Dextrose 5%/Lactated Ringers IV CONT 125 mls/hr .Q8H VETO Administration Ibuprofen 600 mg 08/17/23 16:10 08/17/23 23:09 Ibuprofen 600 Mg Tablet PO 600 mg Q6H PRN Administration Cramping Ketorolac Tromethamine 30 mg 08/17/23 16:10 08/17/23 17:30 Ketorolac 30 Mg/Ml Vial (*Bkc) IV PUSH 08/22/23 16:09 30 mg Q6H PRN Administration Pain Rated 4-6 Naloxone HCl 0.1 mg 08/17/23 16:10 Naloxone Hcl 0.4 Mg/Ml Vial IV PUSH Q2M PRN Respiratory rate less than 10 Ondansetron HCl 4 mg 08/17/23 16:10 Ondansetron Inj 4 Mg/2 Ml Vial IV PUSH Q6H PRN Nausea And Vomiting Simethicone 80 mg 08/17/23 17:00 08/17/23 17:29 Simethicone 80 Mg T
[2023-08-18] MEDS: SIMETHICONE 80 MG TAB.CHEW PO (08:57)
[2023-08-18] MEDS: DOCUSATE SODIUM 100 MG CAPSULE PO (08:57)
[2023-08-18] MEDS: IBUPROFEN 600 MG TABLET PO (08:57)
[2023-08-18] MEDS: ENOXAPARIN 40 MG/0.4 ML SYRINGE SUB-Q (09:00)
[2023-08-18 10:17] VITALS: BP 102/52; PULSE 71; RESP 18; TEMP 36.9; O2SAT 100
== END 2023-08-18 10:41 | disposition home or self-care (01) ==
LOC: ANHSURGERY 12:43 → ANHOB2 16:39
PROVIDERS: PCP Internal Medicine; Visit Provider Obstetrics & Gynecology
PROC: (CPT 58552; principal; 2023-08-17 13:30)
PROC: 0TSD0ZZ Reposition Urethra, Open Approach (ICD-10-PCS; CPT 58552; 2023-08-17 13:30)
DX: D25.0 Submucous leiomyoma of uterus (principal); N83.8 Other noninflammatory disorders of ovary, fallopian tube and broad ligament; N39.3 Stress incontinence (female) (male); E03.9 Hypothyroidism, unspecified; F32.A Depression, unspecified; N80.9 Endometriosis, unspecified; F12.90 Cannabis use, unspecified, uncomplicated; E66.01 Morbid (severe) obesity due to excess calories; Z68.41 Body mass index [BMI] 40.0-44.9, adult; Z79.891 Long term (current) use of opiate analgesic; Z79.85 Long-term (current) use of injectable non-insulin antidiabetic drugs; Z98.890 Other specified postprocedural states; Z98.51 Tubal ligation status; Z87.891 Personal history of nicotine dependence; Z85.3 Personal history of malignant neoplasm of breast; Z80.0 Family history of malignant neoplasm of digestive organs; Z80.8 Family history of malignant neoplasm of other organs or systems; Z82.49 Family history of ischemic heart disease and other diseases of the circulatory system
CPT/HCPCS: 58552; 57288; S2900; 36415; 85025; 86850; 86900; 86901; 88307; 99199; A9270; C1771; J0330; J1100; J1170; J1650; J1885; J2250; J2405; J2704; J3010; J7030; J7120; J7121

== ENCOUNTER 2023-09-14 09:53 | Outpatient (CLI) | payer BC, MEDICAID, SELFPAY ==
[2023-09-14 18:34] LABS: Basophils Absolute Auto 0.1 K/mm3 (0.0-0.1); Basophils Percent Auto 0.6 % (0.2-1.2); Eosinophils Absolute Auto 0.4 K/mm3 (0-0.3); Eosinophils Percent Auto 4.3 % (0-4.4); Hemoglobin 12.7 g/dL (12.0-15.0); Immature Granulocyte Absolute 0.03 K/mm3 (0.00-0.031); Immature Granulocyte Percent A 0.3 % (0-0.5); Lymphocytes Absolute Auto 2.65 K/mm3 (0.9-3.2); Lymphocytes Percent Auto 28.6 % (18.3-44.2); Mean Corpuscular HGB Conc 31.8 g/dl (32-36); Mean Corpuscular Hemoglobin 28.9 pg (26-34); Mean Corpuscular Volume 90.9 fl (80-100); Mean Platelet Volume 9.7 fl (7.4-10.4); Monocytes Absolute Auto 0.7 K/mm3 (0.1-0.6); Monocytes Percent Auto 7.8 % (2.6-8.5); Neutrophils Absolute Auto 5.4 K/mm3 (1.3-6.7); Neutrophils Percent Auto 58.4 % (45.5-73.1); Platelet Count Result 310 k/mm3 (150-375); Red Cell Distribution Width 13.2 % (11.5-14.5); White Blood Count 9.3 K/mm3 (4.5-10.0)
[2023-09-14 18:37] LABS: Alanine Aminotransferase 16 U/L (6-35); Albumin Level 4.1 g/dL (3.5-5.1); Alkaline Phosphatase 66 U/L (38-126); Anion Gap 4 mmol/L (4-12); Aspartate Amino Transferase 26 U/L (14-36); Bilirubin,Total 0.5 mg/dL (0.2-1.3); Blood Urea Nitrogen 18 mg/dL (7-17); Calcium 9.3 mg/dL (8.4-10.2); Carbon Dioxide 29 mmol/L (22-30); Chloride 105 mmol/L (98-107); Cholesterol 237 mg/dL (0-200); Estimated Glomerular Filt Rate > 60; Glucose 86 mg/dL (65-110); HDL Direct 45 mg/dL; Potassium 4.4 mmol/L (3.4-5.0); Sodium 138 mmol/L (137-145); Triglycerides 124 mg/dL (<150)
[2023-09-14 18:48] LABS: LDL Cholesterol Direct 155 mg/dL
== END 2023-09-14 09:54 | disposition home or self-care (01) ==
LOC: ANHGOSHLAB 09:54
PROVIDERS: PCP Nurse Practitioner; Visit Provider Nurse Practitioner
DX: Z13.29 Encounter for screening for other suspected endocrine disorder (principal); Z13.220 Encounter for screening for lipoid disorders; E03.9 Hypothyroidism, unspecified
CPT/HCPCS: 36415; 80053; 80061; 84443; 85025

== ENCOUNTER 2024-08-31 12:03 | Emergency (ER) | payer BC, MEDICAID, SELFPAY ==
[2024-08-31 12:23] VITALS: BP 128/76; PULSE 87; RESP 16; TEMP 35.9; O2SAT 100
--- NOTE | 2024-08-31 12:26 | ED.URI ---
HPI - URI/Sore Throat General Chief Complaint: Upper Respiratory Infection Stated Complaint: Sore Throat/Cough Time Seen by Provider: 08/31/24 12:26 Source: patient Mode of arrival: ambulatory Limitations: no limitations History of Present Illness HPI Narrative: 44-year-old female presents with complaint of sore throat, congestion, sinus pressure for the past 7-8 days. Afebrile. Reports cough, low-grade fever, worsening of congestion the past 2 days. Taking over the counter Claritin D without relief of symptoms. No chest pain or shortness of breath. All systems reviewed and negative except as noted above. Related Data Allergies Allergy/AdvReac Type Severity Reaction Status Date / Time Sulfa (Sulfonamide AdvReac Severe VOMITING Verified 08/31/24 12:20 Antibiotics) sulfanilamide AdvReac Mild Vomiting Verified 08/31/24 12:20 terbinafine AdvReac Mild Vomiting Verified 08/31/24 12:20 Review of Systems Review of Systems: CONSTITUTIONAL: Reports fatigue and fever EYES: Denies visual changes, redness, or discharge. ENT: Reports rhinorrhea, congestion, sore throat. Denies otalgia. CARDIOVASCULAR: Denies chest pain, palpitations, or edema. RESPIRATORY: Reports s cough. Denies dyspnea. GASTROINTESTINAL: Denies abdominal pain, nausea, vomiting, or diarrhea. GENITOURINARY: Denies dysuria or hematuria. SKIN: Denies rash or itching. MUSCULOSKELETAL: Denies back pain, joint pain, or myalgia. NEUROLOGIC: Denies headache, numbness, or weakness. PSYCHIATRIC: Denies anxiety or depression. All other systems reviewed are negative, except as documented in HPI. REPLACED BY [facility] Past Medical History Medical History Breast cancer Carpal tunnel syndrome Endometriosis Hypothyroid Migraines Severe depression Surgical History Surgical History History of breast surgery (~09/2021) right breast duct removal History of lumpectomy of left breast (~09/2021) History of tubal ligation Family History Family History Father Family history of diabetes mellitus in first degree relative Family history of pancreatic cancer Depression Anxiety Mother Family history of malignant neoplasm of thyroid Thyroid disorder Sibling Family history of malignant neoplasm of thyroid Thyroid disorder Grandparent Heart problem Other Diabetes mellitus Family history of malignant neoplasm Hypertension Social History Social History Smoking packs per day: 1 Smoking cigarettes per day: 20.0 Years smoked: 5 Smoking pack-years: 5.00 Smoking status: Never smoker Tobacco type: cigarettes and e-cigarettes/vaping Smoking end date: 08/13/18 Alcohol intake: never Substance use: current Substance use type: marijuana Other substance usage details: smokes marijuana Lack of Transportation: No Lack of Food: Sometimes True Current Housing: I Have Housing Concerned About Future Housing: No Difficulty Paying Gas/Electric Bills: YES Difficulty Paying for Meds: No Currently Unemployed: No Education: Bachelor's Degree Difficulty w/ Childcare or Family Care: No Living arrangements: with family Occupation/Education: occupation Gender identity (if verbalized by the patient): Female Sexual Orientation (if Verbalized by the Patient): Straight or Heterosexual Spiritual care concerns: No Comments At time of signature, agree with nursing past medical, surgical, social and family history. There is no relevant family history pertinent to the presenting complaint. Exam Narrative: GENERAL: This is a well-nourished, well-developed patient, ill-appearing but no acute distress HEAD: normocephalic, atraumatic. EYES: PERRL. Sclera clear/white. Vision is grossly intact. EARS: External ears normal, auditory canals clear and without drainage, TMs normal without perforation. Hearing grossly intact. NOSE: External nose normal congestion, purulent nasal drainage, erythema to bilateral nares THROAT: Mucous membranes moist, erythema with postnasal drainage. No significant swelling or exudates NECK: Neck supple, non-tender without lymphadenopathy, masses or thyromegaly. CARDIOVASCULAR: Regular rate and rhythm without murmurs, gallops, or rubs. RESPIRATORY: Clear to auscultation. Breath sounds equal bilaterally. No wheezes, rales, or rhonchi. SKIN: warm, Dry, intact with no suspicious lesions or rash, good texture and turgor. NEURO: awake, alert, and oriented to person, place and time. There were no obvious focal neurologic abnormalities. EXTREMITIES: No joint tenderness, effusion, or edema noted. Course Course Level of Care: Express Care Visit Vital Signs Vital signs: Vital Signs Oxygen Delivery Room Air 08/31/24 12:21 Temperature 35.9 C L 08/31/24 12:23 Pulse Rate 87 08/31/24 12:23 Respiratory Rate 16 08/31/24 12:23 Blood Pressure 128/76 08/31/24 12:23 Pulse Oximetry 100 08/31/24 12:23 Oxygen Delivery Room Air 08/31/24 12:21 Reviewed MDM - URI/Sore Throat MDM Narrative Medical decision making narrative: Negative strep test. Strep culture ordered. Will treat patient with antibiotic for bacterial sinusitis due to duration of symptoms and exam findings. Differential Diagnosis Differential diagnosis: Likely upper respiratory infection, sinusitis, viral infection, influenza and pharyngitis Discharge Plan Discharge Clinical Impression: Acute bacterial sinusitis Patient Disposition: Home Condition: Stable Instructions: Antibiotic Form, Sinusitis (ED) Additional Instructions: Your strep test was negative today. Take medications as prescribed. Continue taking [id number] Claritin D as directed on packaging. Drink at least 64 oz water a day. Place cool mist humidifier in bedroom where you sleep. Follow-up with your doctor if symptoms are not improving. Patient Language: Prydeinig Prescriptions: New benzonatate 200 mg capsule 200 mg PO TID PRN (Reason: cough) Qty: 20 0RF methylprednisolone [Medrol (Ahmet)] 4 mg tablets,dose pack See Rx Instructions PO .COMPLEX Qty: 21 0RF Rx Instructions: orally per package directions amoxicillin-pot clavulanate 875-125 mg tablet 1 tablet PO Q12H 7 Days Qty: 14 0RF No Action norethindrone (contraceptive) 0.35 mg tablet See Rx Instructions .ROUTE .COMPLEX Qty: 84 0RF Dose Instruction: TAKE 1 TABLET BY MOUTH EVERY DAY Rx Instructions: TAKE 1 TABLET BY MOUTH EVERY DAY citalopram 40 mg tablet 40 mg PO HS Qty: 90 1RF levothyroxine 112 mcg tablet 112 mcg PO HS Qty: 90 1RF bupropion HCl 150 mg tablet extended release 24 hr 150 mg PO HS Qty: 90 1RF Aimovig Autoinjector 70 mg/mL auto-injector 70 mg subcut MONTHLY Qty: 1 1RF Follow-up/Referrals: PHYSICIAN,BUYING AGENT [Primary Care Provider] - Time of Disposition: 12:33
[2024-08-31 12:27] LABS: EDSTREPNEGPOS1 Negative (Negative)
== END 2024-08-31 12:44 | disposition home or self-care (01) ==
PROVIDERS: Emergency Provider Nurse Practitioner Family
DX: J01.90 Acute sinusitis, unspecified (principal); Z87.891 Personal history of nicotine dependence; F12.90 Cannabis use, unspecified, uncomplicated; E03.9 Hypothyroidism, unspecified; N80.9 Endometriosis, unspecified; Z85.3 Personal history of malignant neoplasm of breast; Z90.12 Acquired absence of left breast and nipple
CPT/HCPCS: 87081; 87880; 99213; G0463